=== PATIENT | female | born 1955 | race Caucasian/White ===

== ENCOUNTER 2016-12-03 16:48 | Emergency (ER) | payer OTHER ==
[2016-12-03 17:36] VITALS: BP 102/69
[2016-12-03] MEDS ORDERED: HYDR-971 PO (17:54)
--- NOTE | 2016-12-03 17:54 | PHYS DOC ---
Past Medical History Past Medical History: Migraines Past Surgical History: Tubal ligation Additional Past Surgical Histo: Lasik Alcohol Use: None Drug Use: None Adult General Chief Complaint Chief Complaint: FOOT INJURY PAIN HPI HPI Patient is a 61 year old female who presents with mild pain on top of the right foot that began today after she fell into a hole. Patient denies any loss of consciousness. Patient describes the pain as throbbing worse on movement. Review of Systems Review of Systems Constitutional: Denies fever or chills [] Eyes: Denies change in visual acuity, redness, or eye pain [] HENT: Denies nasal congestion or sore throat [] Musculoskeletal: right foot pain Integument: Denies rash or skin lesions [] Neurologic: Denies headache, focal weakness or sensory changes [] Endocrine: Denies polyuria or polydipsia [] Allergies Allergies Allergies Coded Allergies Type Severity Reaction Last Updated Verified Penicillins Allergy Unknown 09/05/13 Yes Physical Exam Physical Exam Constitutional: Well developed, well nourished, no acute distress, non-toxic appearance. [] HENT: Normocephalic, atraumatic, bilateral external ears normal, oropharynx moist, no oral exudates, nose normal. [] Skin: Warm, dry, no erythema, no rash. [] Back: No tenderness, no CVA tenderness. [] Extremities: Right foot with small amount of soft tissue swelling on top of the foot. Tenderness on palpation of the right foot first through fifth metatarsals. No pain or tenderness of the navicular bone or the base of the fifth metatarsal of the right foot. +2 right pedal pulse. Cap refill less than 2 seconds the right lower extremity. Sensation intact to the right lower extremity. Neurologic: Alert and oriented X 3, normal motor function, normal sensory function, no focal deficits noted. [] Psychologic: Affect normal, judgement normal, mood normal. [] Current Patient Data Vital Signs Vital Signs Date Time Temp Pulse Resp B/P (MAP) Pulse Ox O2 Delivery O2 Flow Rate FiO2 12/03/16 17:36 98.0 74 16 97 Room Air 98.0 EKG EKG [] Radiology/Procedures Radiology/Procedures [] Course & Med Decision Making Course & Med Decision Making Pertinent Labs and Imaging studies reviewed. (See chart for details) Patient is in the ED with right foot pain after falling in a hole. Right foot x- rays interpreted by Dr. Moore and Yudy were noted for fracture of the right first metatarsal. Patient was placed in an orthopedic shoe by the ED RN, neurovascular exam done by me is normal, cap refill less than 2 seconds. Ice elevation encouraged. Provided crutches. Patient will follow up with orthopedic doctor tomorrow. Dragon Disclaimer Dragon Disclaimer This electronic medical record was generated, in whole or in part, using a voice recognition dictation system. Departure Departure Impression: Primary Impression: Fracture of first metatarsal bone of right foot Additional Impression: Fall into hole Disposition: HOME, SELF-CARE Condition: STABLE Referrals: VENUS ROJO MD (PCP) MARIO MILLER MD Follow-up tomorrow with the provided orthopedic doctor Patient Instructions: Foot Fracture-Brief Additional Instructions: You were seen for right first metatarsal fracture. Ice and elevate the extremity. Do not bear weight on the affected extremity. Follow-up with the provided orthopedic doctor or your own orthopedic doctor tomorrow. Scripts Hydrocodone/Apap 5-325 (NORCO 5-325 TABLET) 1 Each Tablet 1-2 TAB PO Q4-6HRS, #10 TAB Prov: CORINA PRESCOTT APRN 12/03/16 Problem Qualifiers Primary Impression: Fracture of first metatarsal bone of right foot Encounter type: initial encounter Fracture type: closed Fracture alignment : nondisplaced Qualified Codes: S92.314A - Nondisplaced fracture of first metatarsal bone, right foot, initial encounter for closed fracture Additional Impression: Fall into hole Encounter type: initial encounter Qualified Codes: W17.2XXA - Fall into hole , initial encounter CORINA PRESCOTT DYNO TECHNICIAN Dec 03, 2016 17:54
--- NOTE | 2016-12-04 08:11 | RAD ---
Indication injury to the toes. AP oblique and lateral views of the right foot were obtained. There are subtle linear lucencies associated with the shaft of the first metatarsal suspect for traumatic nondisplaced fracture. An additional acute bony finding is not seen. There are some degenerative changes at the first metatarsal phalangeal joint. IMPRESSION: Probable nondisplaced fracture first metatarsal
== END 2016-12-03 18:21 | disposition home or self-care (01) ==
LOC: ER 16:48
DX: S92.314A Nondisplaced fracture of first metatarsal bone, right foot, initial encounter for closed fracture (principal); G43.909 Migraine, unspecified, not intractable, without status migrainosus; Z98.51 Tubal ligation status; Z88.0 Allergy status to penicillin; W17.2XXA Fall into hole, initial encounter; Y93.89 Activity, other specified; Y92.89 Other specified places as the place of occurrence of the external cause; Y99.8 Other external cause status
CPT/HCPCS: 73630; 99284

== ENCOUNTER → 2017-08-02 | Outpatient (CLI) | payer OTHER | END | disposition home or self-care (01) | LOC: MAMMO 08:58 | DX: Z12.31 Encounter for screening mammogram for malignant neoplasm of breast (principal) | CPT/HCPCS: 77063; 77067 ==

== ENCOUNTER → 2017-08-31 | Outpatient (CLI) | payer OTHER ==
[2017-08-31 09:05] LABS: ALBUMIN 3.8 g/dL (3.4-5.0); ALK PHOS 106 U/L (46-116); ALT (SGPT) 33 U/L (14-59); ANION GAP 5 (6-14); AST (SGOT) 29 U/L (15-37); BLOOD UREA NITROGEN 18 mg/dL (7-20); BUN/CREATININE RATIO 23 (6-20); CALCIUM 9.7 mg/dL (8.5-10.1); CARBON DIOXIDE 32 mmol/L (21-32); CHLORIDE 104 mmol/L (98-107); CHOLESTEROL 147 mg/dL (0-200); CREATININE 0.8 mg/dL (0.6-1.0); GFR 72.9; GLUCOSE 91 mg/dL (70-99); HDLC 49 mg/dL (40-60); LDLC 78 mg/dL (0-100); NON-HDL CHOLESTEROL 98 mg/dL (0-129); POTASSIUM 4.1 mmol/L (3.5-5.1); SODIUM 141 mmol/L (136-145); TOTAL BILIRUBIN 0.5 mg/dL (0.2-1.0); TOTAL PROTEIN 7.7 g/dL (6.4-8.2); TRIGLYCERIDES 101 mg/dL (0-150); VLDLC 20 mg/dL (0-40)
[2017-08-31 15:44] LABS: THYROID STIM HORMONE (TSH) 2.731 uIU/mL (0.358-3.74)
== END | disposition home or self-care (01) ==
LOC: LAB 08:27
DX: Z11.59 Encounter for screening for other viral diseases (principal); K59.09 Other constipation; E78.4 Other hyperlipidemia
CPT/HCPCS: 36415; 80053; 80061; 84443

== ENCOUNTER → 2017-12-14 | Day surgery (SDC) | payer OTHER ==
[~2017-12-14] MED LIST: LIDOCAINE 2% PF Vial for OR 5 ML VIAL.; PROPOFOL 40 ML IV
[2017-12-14] MEDS: IV RINGERS,LACTATED 1000ML 1,000 ML IV (07:31)
== END | disposition home or self-care (01) ==
LOC: ENDOS 06:57
DX: Z12.11 Encounter for screening for malignant neoplasm of colon (principal); K57.30 Diverticulosis of large intestine without perforation or abscess without bleeding; K64.0 First degree hemorrhoids; Z88.0 Allergy status to penicillin; Z79.899 Other long term (current) drug therapy; Z82.49 Family history of ischemic heart disease and other diseases of the circulatory system; E78.00 Pure hypercholesterolemia, unspecified; Z98.51 Tubal ligation status; F17.200 Nicotine dependence, unspecified, uncomplicated
CPT/HCPCS: 45378; J2001; J2704

== ENCOUNTER → 2018-09-17 | Outpatient (CLI) | payer OTHER ==
[~2018-09-17] MED LIST changes: +CRESTOR20 MG PO; +HYDR-3164 PO; -LIDOCAINE 2% PF Vial for OR 5 ML VIAL.; -PROPOFOL 40 ML IV
--- NOTE | 2018-09-17 15:43 | RAD ---
EXAM: Chest, 2 views. HISTORY: Cough. COMPARISON: None. FINDINGS: 2 views the chest are obtained. There is no infiltrate, pleural effusion or pneumothorax. The heart is normal in size. IMPRESSION: No acute pulmonary finding. Electronically signed by: Luci Coronado MD (09/17/2018 3:41 PM) [place] [id number]
== END | disposition home or self-care (01) ==
LOC: RAD 14:55
PROVIDERS: ATTEND Internal Medicine
DX: R05 Cough (principal); Z87.891 Personal history of nicotine dependence
CPT/HCPCS: 71046

== ENCOUNTER → 2018-09-18 | Outpatient (CLI) | payer OTHER ==
[2018-09-18 09:21] LABS: BASO % 1 % (0-3); EOS # 0.1 x10^3/uL (0.0-0.7); EOS % 2 % (0-3); HEMATOCRIT 42.2 % (36.0-47.0); HEMOGLOBIN 13.8 g/dL (12.0-15.5); LYMPH # 2.5 x10^3/uL (1.0-4.8); LYMPH % 42 % (24-48); MEAN CORPUSCULAR HEMOGLOBIN 29 pg (25-35); MEAN CORPUSCULAR HGB CONC 33 g/dL (31-37); MEAN CORPUSCULAR VOLUME 90 fL (79-100); MONO # 0.5 x10^3/uL (0.0-1.1); MONO % 8 % (0-9); NEUT # 2.8 x10^3uL (1.8-7.7); NEUT % 47 % (31-73); PLATELET COUNT 232 x10^3/uL (140-400); RED BLOOD COUNT 4.71 x10^6/uL (3.50-5.40); RED CELL DISTRIBUTION WIDTH 13.2 % (11.5-14.5)
[2018-09-18 09:34] LABS: ALBUMIN/GLOBULIN RATIO 1.1 (1.0-1.7); CALCIUM 9.6 mg/dL (8.5-10.1); CREATININE 0.7 mg/dL (0.6-1.0); GFR 84.8; POTASSIUM 3.9 mmol/L (3.5-5.1); TOTAL BILIRUBIN 0.4 mg/dL (0.2-1.0); TOTAL PROTEIN 7.8 g/dL (6.4-8.2)
== END | disposition home or self-care (01) ==
LOC: LAB 07:52
PROVIDERS: ATTEND Internal Medicine
DX: E78.5 Hyperlipidemia, unspecified (principal); R05 Cough
CPT/HCPCS: 36415; 80053; 80061; 85025

== ENCOUNTER → 2019-04-01 | Outpatient (CLI) | payer OTHER ==
--- NOTE | 2019-04-02 09:45 | RAD ---
CHEST PA LATERAL History: Cough, crackles left lobe. Comparison: September 17, 2018 Findings: No consolidation or pleural effusion. Normal heart size. Hyperinflation. Impression: 1. Hyperinflation. 2. Otherwise, negative chest. Electronically signed by: Nazario Almaguer DO (04/02/2019 9:42 AM) [facility]
== END | disposition home or self-care (01) ==
LOC: RAD 11:21
PROVIDERS: ATTEND Family Medicine
DX: R91.8 Other nonspecific abnormal finding of lung field (principal); R05 Cough
CPT/HCPCS: 71046

== ENCOUNTER → 2020-03-10 | Outpatient (CLI) | payer SELFPAY ==
--- NOTE | 2020-03-10 16:01 | KCIC ---
CT for coronary artery calcium scoring, without IV contrast, 03/10/2020 3:57 PM INDICATION: Reason: Hyperlipidemia, family hx. heart disease / Spl. Instructions: / History: Technique: Noncontrast CT images through the coronary arteries was performed . Findings: No significant noncardiac findings are identified. Visual inspection of the coronary arteries: Calcification noted within the left anterior descending coronary artery. The remaining coronary arteries are without discernible calcified plaque. The computer-generated calcium scoring utilizing AJ-130 criteria are as follows: Left Main Artery: 0. Left Anterior Descending Artery: 115. Left Circumflex Artery: 0. Right Coronary Artery: 0 . The total calcium score is 115. Impression: Your total calcium score is 115. A moderate amount of plaque is present. This correlates with heart disease, and a moderate to high risk for a myocardial infarction Table: 0: No plaque is present. The chance of significant heart disease is less than 5%, and corresponds to a very low risk for a myocardial infarction. present. The chance of significant heart disease is less than 10%, and corresponds to a low risk for a myocardial infarction. 11-100: Plaque is present. This correlates with mild heart disease and a moderate risk for a myocardial infarction. 101-400: A moderate amount of plaque is present. This correlates with heart disease, and a moderate to high risk for a myocardial infarction. Over 400: A large amount of plaque is present. This correlates with a greater than 90% chance of a high grade stenosis. The risk for myocardial infarction is high. CT DOSING PQRS STATEMENT: One or more of the following individualized dose reduction techniques were utilized for this examination: 1. Automated exposure control 2. Adjustment of the mA and/or kV according to patient size 3. Use of iterative reconstruction technique Electronically signed by: Wilman Kessler MD (03/10/2020 3:59 PM) [id number]
== END ==
LOC: KCIC CT 12:52
PROVIDERS: ATTEND Family Medicine
DX: E78.5 Hyperlipidemia, unspecified (principal); I25.10 Atherosclerotic heart disease of native coronary artery without angina pectoris; Z82.49 Family history of ischemic heart disease and other diseases of the circulatory system
CPT/HCPCS: 75571

== ENCOUNTER → 2020-03-19 | Outpatient (CLI) | payer OTHER ==
--- NOTE | 2020-03-19 16:15 | RAD ---
MR#: [id number] Date of Study: 03/19/2020 Ordering Physician: MAMIE MONTESINOS, Referring Physician: AALIYAH FITZGERALD Tech: APPROVED REPORT Test Type: Exercise Stress Nurse/Tech: Liliya Rajput RN Test Indications: Abnormal EKG, calcium CT increased Cardiac History: Family history Medications: See Electronic Medical Record Medical History: See Electronic Medical Record Resting ECG: SR Resting Heart Rate: 74 bpm Resting Blood Pressure: 141/79mmHg Pretest Chest Pain: No chest pain Nurse/Tech Notes S1,S2 and lungs clear to auscultation. Consent: The procedure was explained to the patient in lay terms. Informed consent was witnessed. Rick pamelaut was entered into [employer]. History and Stress Test performed by SHEMAR Snider Stress Symptoms Fatigue POST EXERCISE Reason for Termination: Reached target heart rate, Fatigue Target HR: Yes Max HR: 159 bpm 100% of Maximum Predicted HR: 157 bpm Exercise duration: 5:01 min:sec, 2 Stage Exercise capacity: 7.0METs Max Blood Pressure: 138/78mmHg Blood Pressure response to exercise: Normal blood pressure response during stress. Heart Rate response to exercise: WNL Chest Pain: No. Arrhythmia: No. ST Change: No. INTERPRETATION Stress EKG Conclusion: The baseline EKG shows a sinus rhythm with nonspecific ST-T wave changes. Imaging Protocol IMAGE PROTOCOL: Rest Tc-99m/stress Tc-99m 1 day Rest: Stress: Viability: Radiopharm.Tc99m IqpixltclHx22d Sestamibi Cbra97qBd 33mCi Duration 15min. 10min. Img Date 03/19/2020 03/19/2020 Inj-Img [id number]. 60min. Post-Injection Exercise: 1 minute Rest Admin Site:IV - Right AntecubitalAdministrator:RT Mindy (R)(N) Stress Admin Site: IV - Right AntecubitalAdministrator: RT Mindy (R)(N) STRESS DATA End Diast. Vol.54.0mlAv. Heart Rate77.0bpm End Syst. Vol.3.0mlCO Index BSA0.0L/min Myocardial Mass97.0gEject. Tucwtzik12.0% Stress Rates Pk. Fill Rate5.01EDV/secLVtime Pk. Fill 189.03msec Pk. Empty Rate5.44ESV/secLVtime Pk. Iqsht708.85msec 1/3 Pk. Fill1.65EDV/sec Stress Scores Regional WT0.00Summed WT0.00 Regional WM0.00Summed WM0.00 LV Perfusion The stress scans showed no significant defects. The rest scans showed no significant defects. Nuclear imaging shows no reversible ischemia or infarct. Wall Motion Left ventricular systolic function is normal with no regional wall motion abnormalities and an ejecti on fraction of greater than 70%. LV Perf. Quant 17 Seg. SSS0.00 17 Seg. SRS0.00 17 Seg. SDS0.00 Stress Defect Extent (% LAD)0.00Rest Defect Extent (% LAD)0.00Rev. Defect Extent (% LAD)0.00 Stress Defect Extent (% LCX) 0.00Rest Defect Extent (% LCX)0.00Rev. Defect Extent (% LCX)0.00 Stress Defect Extent (% RCA)0.00Rest Defect Extent (% RCA)0.00Rev. Defect Extent (% RCA)0.00 Stress Defect Extent (% IRENE)0.00Rest Defect Extent (% IRENE)0.00Rev. Defect Extent (% IRENE)0.00 Conclusion 1. Good exercise tolerance with the patient walking for 5 minutes and 1 seconds on a Nathaniel protocol. 2. No chest pain reported with exertion. 3. No EKG evidence of stress-induced ischemia. 4. Nuclear imaging shows no reversible ischemia or infarct. 5. Normal left ventricular systolic function with an ejection fraction of greater than 70%. 6. Low risk treadmill nuclear stress test. Signed by : Mamie Montesinos MD Electronically Approved : 03/19/2020 16:15:24
== END ==
LOC: NM 08:39
PROVIDERS: ATTEND Internal Medicine Cardiovascular Disease
DX: R94.31 Abnormal electrocardiogram [ECG] [EKG] (principal)
CPT/HCPCS: 78452; 93017; A9500

== ENCOUNTER → 2020-06-09 | Outpatient (CLI) | payer OTHER ==
--- NOTE | 2020-06-09 11:58 | KCIC ---
EXAM: DUAL ENERGY X-RAY ABSORPTIOMETRY (DEXA). HISTORY: Postmenopausal screening. FINDINGS: The lowest measured T-score is -2.5 in the lumbar spine, based on a bone mineral density of 0.777 g/cm^2. Refer to the worksheets for full detail. No comparison examinations are available. IMPRESSION: 1. Osteoporosis. Bone mineral density yields a T-score of -2.5 or less. Fracture risk is high. 2. FRAX report: Not calculated. METHODOLOGY: Dual energy x-ray absorptiometry was performed to measure bone mineral density. The foll owing analysis is based on the 2019 Official Positions of the International Society for Clinical Dens itometry: Measurements of the hips and the average of L1-L4 are preferred. When the spine and/or hip cannot be feasibly measured or interpreted, or in the setting of hyperparathyroidism, distal radial bone minera l density may be measured. The lumbar spine T-score is based on the average bone mineral density of L1-L4. In the setting of art ifact or anatomic abnormality, some lumbar levels may be excluded, and the remaining levels used for calculation. A single lumbar level is not used for diagnosis, and if only a single level is available for assessment, another anatomic site will be used to assign a diagnosis. The hip T-score is based on the bone mineral density measurement of the femoral neck or total proxima l femur of either side, whichever is lowest. Bilateral mean values are not used for diagnosis. The forearm T-score is derived from 33% of the distal radius of the nondominant forearm. Electronically signed by: Luci Coronado MD (06/09/2020 11:56 AM) [id number]
== END ==
LOC: KCIC DEXA 11:10
PROVIDERS: ATTEND Family Medicine
DX: M81.8 Other osteoporosis without current pathological fracture (principal); Z78.0 Asymptomatic menopausal state
CPT/HCPCS: 77080

== ENCOUNTER → 2020-07-13 | Outpatient (CLI) | payer OTHER ==
--- NOTE | 2020-07-13 10:19 | RAD ---
CT THORAX WO INDICATION: COUGH X 6-7 MONTHS COMPARISON STUDY: None. TECHNIQUE: Unenhanced axial images were obtained through the lungs and upper abdomen. Coronal and sa gittal multiplanar reconstructions were also obtained. PQRS compliance statement: One or more of the following individualized dose reduction techniques were utilized for this examinat ion: 1. Automated exposure control 2. Adjustment of the mA and/or kV according to patient size 3. Use of iterative reconstruction technique FINDINGS: Lungs and Airways: No pulmonary mass or consolidation. Normal central airways. Pleura: The pleural spaces are normal. Heart and Mediastinum: The visualized thyroid gland is normal in size and attenuation. No axillary or supraclavicular lymphadenopathy. No mediastinal, hilar or retrocrural lymphadenopathy. Normal cardia c size. No pericardial effusion. Coronary artery atherosclerotic disease. Atherosclerosis of the thor acic aorta and branch vessels. Abdomen: The visualized abdominal organs demonstrate no abnormality. Bones and Soft Tissues: The visualized skeletal structures and soft tissues of the chest wall are wit hin normal limits. IMPRESSION: No pulmonary mass or consolidation. No thoracic lymphadenopathy. Electronically signed by: Corey Kaminski MD (07/13/2020 10:17 AM) [id number]
== END ==
LOC: CT 08:43
PROVIDERS: ATTEND Family Medicine
DX: R05 Cough (principal); I70.0 Atherosclerosis of aorta
CPT/HCPCS: 71250

== ENCOUNTER → 2021-01-17 | Outpatient (CLI) | payer OTHER ==
--- NOTE | 2021-01-17 18:27 | RAD ---
Bilateral digital screening mammograms with 3-D tomosynthesis: Reason for examination: Routine screening. Comparison is made to previous study dated 08/02/2017 Bilateral mammograms in CC and oblique projections were obtained with 2-D imaging and 3-D tomosynthes is imaging on a Siemens Inspiration unit and reviewed on the workstation. Interpretation was made wit h the benefit of CAD. The skin and nipples show no abnormalities. No abnormal axillary lymph nodes are seen. The breast par enchyma shows scattered fatty and fibroglandular density. (Breast density: Category B.) There are no dominant masses, suspicious calcifications or architectural distortion. Impression: No evidence of malignancy. Recommend routine screening. BI-RAD Category 1: Negative. "Our facility is accredited by the [employer] Mammography Program." This patient's information has been entered into a reminder system for the patient to be notified wit h the results of her examination and a target date for the next mammogram. Electronically signed by: Darrell Romeo DO (01/17/2021 6:24 PM) [id number]
== END ==
LOC: MAMMO 08:00
PROVIDERS: ATTEND Family Medicine
DX: Z12.31 Encounter for screening mammogram for malignant neoplasm of breast (principal)
CPT/HCPCS: 77063; 77067

== ENCOUNTER → 2021-02-02 | Outpatient (CLI) | payer OTHER ==
--- NOTE | 2021-02-02 16:44 | RAD ---
EXAM: 3 views of the left foot DATE: 02/02/2021 1:34 PM INDICATION: Reason: LEFT FOOT PAIN. / Spl. Instructions: / History: COMPARISON: No Prior FINDINGS: No acute fracture or dislocation. Joint spaces are preserved without significant degenerative/prolife rative change. Moderate forefoot soft tissue swelling is seen. Hallux valgus. Lateral subluxation of the sesamoids. IMPRESSION: Hallux valgus with lateral subluxation of the sesamoids. Moderate forefoot soft tissue swelling. Electronically signed by: Ramon Shields MD (02/02/2021 4:41 PM) [id number]
== END ==
LOC: RAD 13:14
PROVIDERS: ATTEND Family Medicine
DX: M20.12 Hallux valgus (acquired), left foot (principal); M25.475 Effusion, left foot; M25.872 Other specified joint disorders, left ankle and foot
CPT/HCPCS: 73630

== ENCOUNTER → 2021-03-17 | Outpatient (CLI) | payer OTHER ==
[2021-03-17 08:30] LABS: ALBUMIN 3.7 g/dL (3.4-5.0); ALBUMIN/GLOBULIN RATIO 0.9 (1.0-1.7); CALCIUM 8.9 mg/dL (8.5-10.1); CREATININE 0.9 mg/dL (0.6-1.0); POTASSIUM 3.8 mmol/L (3.5-5.1); TOTAL BILIRUBIN 0.3 mg/dL (0.2-1.0); TOTAL PROTEIN 7.6 g/dL (6.4-8.2)
[2021-03-17 08:35] LABS: CHOLESTEROL/HDL RATIO 3.2
== END ==
LOC: LAB 07:47
PROVIDERS: ATTEND Family Medicine
DX: E78.5 Hyperlipidemia, unspecified (principal)
CPT/HCPCS: 36415; 80053; 80061

== ENCOUNTER → 2021-06-15 | Outpatient (CLI) | payer OTHER ==
--- NOTE | 2021-06-15 15:02 | RAD ---
EXAM: Chest, 2 views. HISTORY: Cough. COMPARISON: None. FINDINGS: 2 views of the chest are obtained. There is no infiltrate, pleural effusion or pneumothorax . The heart is normal in size. IMPRESSION: No acute pulmonary finding. Electronically signed by: Luci Coronado MD (06/15/2021 2:59 PM) [id number]
== END ==
LOC: RAD 13:45
PROVIDERS: ATTEND Internal Medicine Critical Care Medicine
DX: R05.9 Cough, unspecified (principal)
CPT/HCPCS: 71046